=== PATIENT | male | born 1950 | race Caucasian/White ===

== ENCOUNTER → 2018-07-11 | Outpatient (CLI) | payer OTHER, BC ==
--- NOTE | 2018-07-11 11:08 | REP ---
RIGHT WRIST, FOUR VIEWS: HISTORY: Pain. There is no acute fracture or dislocation. There is narrowing of the first carpometacarpal joint space with associated osteophyte formation. IMPRESSION: Degenerative change as described above. Electronically Signed by Maxwell Stanley MD 07/11/2018 11:11 A
--- NOTE | 2018-07-11 11:11 | REP ---
RIGHT HAND, FOUR VIEWS: HISTORY: Pain. There is no acute fracture or dislocation. There is narrowing of the 1st carpometacarpal joint space with associated osteophyte formation. There is narrowing of the 1st, 3rd, and 5th metacarpophalangeal joint spaces. Osteophytes are present at the interphalangeal joint of the 1st digit on the head of the 3rd metacarpal and at the 5th intermediate and 2nd through 5th distal interphalangeal joint spaces. Subchondral cysts are present in the proximal and intermediate phalanges of the 5th digit. IMPRESSION: Degenerative change as described above. Electronically Signed by Maxwell Stanley MD 07/11/2018 11:48 A
== END ==
LOC: M WUC 10:24
PROVIDERS: ATTEND Physician Assistant
DX: M25.531 Pain in right wrist (principal); M25.541 Pain in joints of right hand; M85.641 Other cyst of bone, right hand; M19.041 Primary osteoarthritis, right hand; M19.031 Primary osteoarthritis, right wrist

== ENCOUNTER 2018-11-11 10:23 | Day surgery (SDC) | payer BC, OTHER ==
[~2018-11-11] VITALS: Ht 180.3 cm; Wt 98.9 kg
[~2018-11-11 10:23] MED LIST: MULTTAB86 PO; NON-325T5 PO; NS 1,000 ML IV ONE; PROPOFOL 200 MG/20 ML VIAL As Ordered ONE; ROSU40TA4 PO
--- NOTE | 2018-11-11 12:00 | ROOR ---
Patient Name: Paul Boyer Procedure Date: 11/11/2018 11:37 AM Date of : 1950 Age: 68 Room: [facility] Gender: Male Note Status: Finalized Procedure: Total Colonoscopy to Cecum + Cold + Hot Snare Polypectomy + Hemoclips Indications: Screening for colorectal malignant neoplasm Providers: Charli Whalen MD Referring MD: Ethan Chua MD Requesting Provider: Medicines: Monitored Anesthesia Care Complications: No immediate complications. Procedure: Pre-Anesthesia Assessment: - The heart rate, respiratory rate, oxygen saturations, blood pressure, adequacy of pulmonary ventilation, and response to care were monitored throughout the procedure. The Colonoscope was introduced through the anus and advanced to the cecum, identified by appendiceal orifice and ileocecal valve. The colonoscopy was performed without difficulty. The patient tolerated the procedure well. The quality of the bowel preparation was excellent. Findings: The perianal and digital rectal examinations were normal. Non-bleeding internal hemorrhoids were found during retroflexion. The hemorrhoids were small and Grade I (internal hemorrhoids that do not prolapse). Scattered small-mouthed diverticula were found in the recto-sigmoid colon, sigmoid colon and descending colon. A medium polyp was found in the rectum. The polyp was sessile. The polyp was removed with a hot snare. Resection and retrieval were complete. To prevent bleeding after the polypectomy, one hemostatic clip was successfully placed (MR conditional). There was no bleeding at the end of the procedure. A small polyp was found at 25 cm proximal to the anus. The polyp was sessile. The polyp was removed with a cold snare. Resection and retrieval were complete. A small polyp was found in the transverse colon. The polyp was sessile. The polyp was removed with a cold snare. Resection and retrieval were complete. The exam was otherwise without abnormality on direct and retroflexion views. Impression: - Non-bleeding internal hemorrhoids. - Diverticulosis in the recto-sigmoid colon, in the sigmoid colon and in the descending colon. - One medium polyp in the rectum, removed with a hot snare. Resected and retrieved. Clip (MR conditional) was placed. - One small polyp at 25 cm proximal to the anus, removed with a cold snare. Resected and retrieved. - One small polyp in the transverse colon, removed with a cold snare. Resected and retrieved. - The examination was otherwise normal on direct and retroflexion views. - The exam was otherwise normal to the cecum. Recommendation: - Patient has a contact number available for emergencies. The signs and symptoms of potential delayed complications were discussed with the patient. Return to normal activities tomorrow. Written discharge instructions were provided to the patient. - High fiber diet. - Discharge patient to home. - Continue present medications. - Await pathology results. - Telephone GI clinic for pathology results in 1 week. - Repeat colonoscopy for surveillance based on pathology results. - Return to referring physician. - The findings and recommendations were discussed with the patient's family. Charli Whalen MD Charli Whalen MD 11/11/2018 12:00:13 PM Electronically signed by Charli Whalen MD Number of Addenda: 0 Note Initiated On: 11/11/2018 11:37 AM Estimated Blood Loss: Estimated blood loss: none.
[2018-11-11 12:15] VITALS: BP 174/91
== END 2018-11-11 12:45 | disposition home or self-care (01) ==
LOC: M OPP 10:23
PROVIDERS: ATTEND Internal Medicine Gastroenterology
DX: Z12.11 Encounter for screening for malignant neoplasm of colon (principal); K64.0 First degree hemorrhoids; K62.1 Rectal polyp; D12.3 Benign neoplasm of transverse colon; K57.30 Diverticulosis of large intestine without perforation or abscess without bleeding; Z79.899 Other long term (current) drug therapy; Z87.891 Personal history of nicotine dependence

== ENCOUNTER → 2021-01-13 | Outpatient (CLI) | payer OTHER ==
[~2021-01-13] MED LIST changes: +ACET32TAB PO; -NON-325T5 PO; -NS 1,000 ML IV ONE; -PROPOFOL 200 MG/20 ML VIAL As Ordered ONE; +TRIA37.5 PO
== END ==
LOC: M LABSMTC 09:45
PROVIDERS: ATTEND Anesthesiology
DX: Z01.812 Encounter for preprocedural laboratory examination (principal); Z20.822 Contact with and (suspected) exposure to COVID-19

== ENCOUNTER 2021-01-17 09:25 | Day surgery (SDC) | payer OTHER ==
[~2021-01-17] VITALS: Ht 182.9 cm; Wt 101.1 kg
[~2021-01-17 09:25] MED LIST changes: +NS 1,000 ML IV ONE
--- OUTSIDE RECORDS SUMMARY | 2021-01-17 09:31 | CCD | Continuity of Care Document ---
Author Paul Lucas DPM Organization Unknown Address [address] [place] [address], [facility] [address] [place] [address] Phone [phone] Care Team Providers Care Journeyman Pipe Fitter Name Role Phone Raphael Ibarra MD [phone] Problems Description No Information Available Social History Type Date Description Comments Sex Unknown ETOH Use Rarely consumes alcohol Tobacco Use Start: Unknown Patient has never smoked Allergies and adverse reactions Description No Known Drug Allergies Medications Active Medications SIG Qnty Indications Ordering Provide r Date Rosuvastatin Calcium 40mg Tablets Raphael Ibarra MD Triamterene/Hydrochlorothiazide 37.5-25mg Tablets Raphael Ibarra MD 0 Cholecalciferol Unknown 0 Multivitamin Unknown Diclofenac Sodium 1% Gel Raphael Ibarra MD Immunizations Description No Information Available Vital Signs Date Vital Result Comment 12/21/2020 8:32am Height 72 inches 6'0" Weight 220.00 lb BP Systolic 130 mmHg BP Diastolic 86 mmHg Heart Rate 80 /min BMI (Body Mass Index) 29.8 kg/m2 Results Description No Information Available Procedures Date Code Description Status 12/21/2020 64940 Office/Outpatient New Low [facility] 30 -44 Minutes Completed Medical Devices Description No Information Available Encounters Type Date Location Provider Dx Diagnosis Office Visit 12/21/2020 8:30a [place] [facility] Hipolito Cooper DPM 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
--- OUTSIDE RECORDS SUMMARY | 2021-01-17 09:31 | CCD ---
Continuity of Care Document (CCD) Created on: 12/05/2020 Paul Boyer External Reference #: [id number] : 1950 Sex: Male Author Author Paul WHALEN M.D. Organization Unknown Address [address] [place] [address] Phone [phone] Care Team Providers Care Investigative Analyst Name Role Phone Maxwell Interiano MD AUTM [phone] Problems Active Problems Provider Date Screening for malignant neoplasm of colon Charli villasenor M.D. Onset: 10/15/2018 Social History Type Date Description Comments Sex Unknown ETOH Use Occasionally Tobacco Use Start: Unknown End: Unknown Patient is a former smoker QUIT EARLY Recreational Drug Use Sporadically uses Marijuan a Allergies and adverse reactions Description No Known Drug Allergies Medications Active Medications SIG Qnty Indications Ordering Provide r Date Suprep Bowel Prep Kit 17.5-3.13-1.6GM/177ML Solution use as directed 354ml Charli Whalen M.D. 11/28/2020 Pravastatin Sodium 40mg Tablets Raphael Ibarra MD Immunizations Description No Information Available Vital Signs Date Vital Result Comment 11/28/2020 4:00pm Height 71 inches 5'11" Weight 222.00 lb BP Systolic 136 mmHg BP Diastolic 83 mmHg Heart Rate 54 /min BMI (Body Mass Index) 31.0 kg/m2 Weight 100.699 kg Body Temperature 97.0 F 10/15/2018 9:51am Height 71 inches 5'11" Weight 232.00 lb BP Systolic 132 mmHg BP Diastolic 85 mmHg Heart Rate 61 /min BMI (Body Mass Index) 32.4 kg/m2 Weight 105.235 kg Results Description No Information Available Procedures Date Code Description Status 11/28/2020 59714 Office/Outpatient Established Lo w MDM 20-29 Min Completed Medical Devices Description No Information Available Encounters Type Date Location Provider Dx Diagnosis Office Visit 11/28/2020 3:45p Main Office Charli Whalen M.D. 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 Plan of Treatment Future Appointment(s):* 01/17/2021 1:15 pm - Charli Whalen M.D. at Main Office 11/28/2020 - Charli Whalen M.D.* D12.8 Benign neoplasm of rectum* Comments:* 70 yo wm who presents for a colonoscopy due to a h/o colonic polyps-tubulovillous adenoma-rectum. Last scope was in 2019. No c/o abdominal pain, weight loss, change in bowel habits, or rectal bleeding. No family h/o colon cancer. No h/o chest pain, or sob. Plan:1. Colonoscopy to cecum.2. Informed consent. Functional Status Description No Information Available Mental Status Description No Information Available Referrals Refer to Dr Reason for Referral Status Appt Date Charli Whalen M.D. Created [address] [place] [address] [phone]
--- OUTSIDE RECORDS SUMMARY | 2021-01-17 09:31 | CCD ---
Author Author [facility] Organization [facility] Address Unknown Phone Unavailable Care Team Providers Care Jute Bag Sewer Name Role Phone Nathalia Whalen MD Unavailable Unavailable Nathalia Whalen MD Unavailable Unavailable Nathalia Whalen MD Unavailable Unavailable Nathalia Whalen MD Unavailable Unavailable Nathalia Whalen MD Unavailable Unavailable Nathalia Whalen MD Unavailable Unavailable Nathalia Whalen MD Unavailable Unavailable Nathalia Whalen MD Unavailable Unavailable Nathalia Whalen MD Unavailable Unavailable Nathalia Whalen MD Unavailable Unavailable Nathalia Whalen MD Unavailable Unavailable Nathalia Whalen MD Unavailable Unavailable Nathalia Whalen MD Unavailable Unavailable Nathalia Whalen MD Unavailable Unavailable Nathalia Whalen MD Unavailable Unavailable Nathalia Whalen MD Unavailable Unavailable Nathalia Whalen MD Unavailable Unavailable Nathalia Whalen MD Unavailable Unavailable Nathalia Whalen MD Unavailable Unavailable Nathalia Whalen MD Unavailable Unavailable Nathalia Whalen MD Unavailable Unavailable Nathalia Whalen MD Unavailable Unavailable Nathalia Whalen MD Unavailable Unavailable Nathalia Whalen MD Unavailable Unavailable Nathalia Whalen MD Unavailable Unavailable Nathalia Whalen MD Unavailable Unavailable Nathalia Whalen MD Unavailable Unavailable Nathalia Whalen MD Unavailable Unavailable Nathalia Whalen MD Unavailable Unavailable Nathalia Whalen MD Unavailable Unavailable Koby, S Charli MALHOTRA Unavailable Unavailable Koby, S Charli MD Unavailable Unavailable Koby, S Charli MD Unavailable Unavailable Koby, S Charli MD Unavailable Unavailable Koby, S Charli MD Unavailable Unavailable Koby, S Charli MD Unavailable Unavailable Koby, S Charli MD Unavailable Unavailable Koby, S Charli MD Unavailable Unavailable Koby, S Charli MD Unavailable Unavailable Koby, S Charli MD Unavailable Unavailable Koby, S Charli MD Unavailable Unavailable Koby, S Charli MD Unavailable Unavailable Koby, S Charli MD Unavailable Unavailable Koby, S Charli MD Unavailable Unavailable Koby, S Charli MD Unavailable Unavailable Koby, S Charli MD Unavailable Unavailable Koby, S Charli MD Unavailable Unavailable Koby, S Charli MD Unavailable Unavailable Koby, S Charli MD Unavailable Unavailable Koby, S Charli MD Unavailable Unavailable MAJAK, R GODFREY DPM Unavailable Unavailable MAJAK, R GODFREY DPM Unavailable Unavailable MAJAK, R GODFREY DPM Unavailable Unavailable MAJAK, R GODFREY DPM Unavailable Unavailable MAJAK, R GODFREY DPM Unavailable Unavailable MAJAK, R GODFREY DPM Unavailable Unavailable MAJAK, R GODFREY DPM Unavailable Unavailable MAJAK, R GODFREY DPM Unavailable Unavailable MAJAK, R GODFREY DPM Unavailable Unavailable MAJAK, R GODFREY DPM Unavailable Unavailable MAJAK, R GODFREY DPM Unavailable Unavailable MAJAK, R GODFREY DPM Unavailable Unavailable MAJAK, R GODFREY DPM Unavailable Unavailable MAJAK, R GODFREY DPM Unavailable Unavailable MAJAK, R GODFREY DPM Unavailable Unavailable MAJAK, R GODFREY DPM Unavailable Unavailable MAJAK, R GODFREY DPM Unavailable Unavailable MAJAK, R GODFREY DPM Unavailable Unavailable MAJAK, R GODFREY DPM Unavailable Unavailable MAJAK, R GODFREY DPM Unavailable Unavailable MAJAK, R GODFREY DPM Unavailable Unavailable MAJAK, R GODFREY DPM Unavailable Unavailable MAJAK, R GODFREY DPM Unavailable Unavailable MAJAK, R GODFREY DPM Unavailable Unavailable MAJAK, R GODFREY DPM Unavailable Unavailable MAJAK, R GODFREY DPM Unavailable Unavailable MAJAK, R GODFREY DPM Unavailable Unavailable MAJAK, R GODFREY DPM Unavailable Unavailable MAJAK, R GODFREY DPM Unavailable Unavailable MAJAK, R GODFREY DPM Unavailable Unavailable MAJAK, R GODFREY DPM Unavailable Unavailable Re-disclosure Warning The records that you are about to access may contain information from federally-assisted alcohol or drug abuse programs. If such information is present, then the following federally mandated warning applies: This information has been disclosed to you from records protected by federal confidentiality rules (42 CFR part 2). The federal rules prohibit you from making any further disclosure of this information unless further disclosure is expressly permitted by the written consent of the person to whom it pertains or as otherwise permitted by 42 CFR part 2. A general authorization for the release of medical or other information is NOT sufficient for this purpose. The Federal rules restrict any use of the information to criminally investigate or prosecute any alcohol or drug abuse patient.The records that you are about to access may contain highly sensitive health information, the redisclosure of which is protected by Article 27-F of the [facility] Public Health law. If you continue you may have access to information: Regarding HIV / AIDS; Provided by facilities licensed or operated by the [facility] Office of Mental Health; or Provided by the [facility] Office for People With Developmental Disabilities. If such information is present, then the following [facility] mandated warning applies: This information has been disclosed to you from confidential records which are protected by state law. State law prohibits you from making any further disclosure of this information without the specific written consent of the person to whom it pertains, or as otherwise permitted by law. Any unauthorized further disclosure in violation of state law may result in a fine or fdc sentence or both. A general authorization for the release of medical or other information is NOT sufficient authorization for further disc losure. Family History Family Member Name Family Member Gender Family Member Status Date o f Status Description Data Source(s) Unknown Unknown Problem [facility] ([facility]) Unknown Unknown Problem [facility] ([facility], [facility]) Encounters Encounter Providers Location Date Indications Data Source(s ) Outpatient Attender: GODFREY SEXTON [facility] Office 09/2020 08:30:00 AM EDT [facility] ([facility] Outpatient Attender: Charli Whalen MD Main Office 11/28/2020 03:45:00 PM EDT [facility] ([facility]) Immunizations Vaccine Date Status Description Data Source(s) COVID-19 VACCINE Pfizer 06/13/2020 12:00:00 AM EDT completed [facility] Vaccine Series Complete: YESThis Data wa s Submitted to [facility]. COVID-19 VACCINE Pfizer 05/23/2020 12:00:00 AM EST completed [facility] Vaccine Series Complete: NOThis Data was Submitted to [facility] [employer]. Medications Medication Brand Name Start Date Product Form Dose Route Admi nistrative Instructions Pharmacy Instructions Status Indications Reaction Description Data Source(s) Suprep Bowel Prep Kit Suprep Bowel Prep Kit 11/28/2020 12:00:00 AM EDT active [facility] ([facility]) Insurance Providers Payer name Policy type / Coverage type Policy ID Covered green party ID Covered green party's relationship to josé Policy José Plan Information BCBS OF [facility] [id number] S [id number] [employer] [id number] SP [id number] BC[employer] OF [facility] [id number] S [id number] [facility] [id number] S [id number] [employer]BS [employer] PRO[employer] [id number] SP [id number] WPS/MV/Vapc3/[employer] Commercial [id number] Self [id number] BCBS OF [facility] [id number] S [id number] ANSI-Commercial [id number] ANSI-Commercial [id number] ANSI-Commercial [id number] BCBS [facility] PPO 302/[id number] SP [id number] [facility] FEDERAL [id number] SP [id number] BCBS Federal Plan Commercial [id number] Self [id number] ANSI-Commercial [id number] ANSI-Commercial [id number] ANSI-Commercial [id number] DEPARTMENT OF LABOR-OWCP [id number] S [id number] GENERAL SERVICES ADMINISTRATIO [id number] S [id number] SELF PAY SP UNAVAILABLE UNAVAILA BLE GSA [id number] S [id number] EMPLOYER [id number] S [id number] 'S ADMINISTRATION [id number] SP [id number] [facility] [id number] SP [id number] Problems, Conditions, and Diagnoses No Information Surgeries/Procedures Procedure Description Date Indications Data Source(s) OFFICE OUTPATIENT NEW 30 MINUTES 12/21/2020 12:00:00 A M EDT [facility] ([facility] OFFICE OUTPATIENT VISIT 15 MINUTES 11/28/2020 12:00:00 AM EDT [facility] ([facility]) Results ID Date Data Source [id number] 01/13/2021 09:50:00 AM EDT [facility] Name Value Range Interpretation Code Description Data Taina rce(s) Supporting Document(s) SARS-CoV-2 (COVID-19) RNA [Presence] in Respiratory specimen by CORTNEY with probe detection Not Detected [facility] This lab was ordered by [facility] and reported by [employer] ID Date Data Source [id number] 04/08/2020 12:00:00 AM EST [facility] Name Value Range Interpretation Code Description Data Taina rce(s) Supporting Document(s) SARS-CoV-2 (COVID-19) RNA [Presence] in Respiratory specimen by CORTNEY with probe detection Not detected [facility] This lab was ordered by [employer] and r eported by [employer]. ID Date Data Source [id number] 04/08/2020 12:00:00 AM EST [facility] Name Value Range Interpretation Code Description Data Taina rce(s) Supporting Document(s) SARS-COV 2 PCR NEGATIVE [facility] This lab was ordered by [id number] and reported by [employer]. Procedure Social History No Information Vital Signs ID Date Data Source UNK Name Value Range Interpretation Code Description Data Source(s) Diastolic blood pressure 86 mm[Hg] 86 mm[Hg] [facility] ([facility] Heart rate 80 /min 80 /min [facility] ([facility] Body mass index (BMI) [Ratio] 29.8 kg/m2 29.8 k g/m2 [facility] ([facility] Body height 72 [in_i] 72 [in_i] [facility] ([facility] 6'0" Body weight 220.00 [lb_av] 220.00 [lb_av] MEDEN T ([facility] Systolic blood pressure 130 mm[Hg] 130 mm[Hg] M EDENT ([facility] Body height 71 [in_i] 71 [in_i] [facility] ([facility]) 5'11" Body weight 222.00 [lb_av] 222.00 [lb_av] MEDEN T ([facility]) Systolic blood pressure 136 mm[Hg] 136 mm[Hg] M EDENT ([facility]) Diastolic blood pressure 83 mm[Hg] 83 mm[Hg] [facility] ([facility]) Heart rate 54 /min 54 /min [facility] ([facility]) Body mass index (BMI) [Ratio] 31.0 kg/m2 31.0 k g/m2 [facility] ([facility]) Body weight 100.699 kg 100.699 kg [facility] ([facility] Body temperature 97.0 [degF] 97.0 [degF] [facility] ([facility])
[2021-01-17] MEDS ORDERED: LIDOCAINE 2% 100MG/5ML SDV (FOR ANES.) As Ordered ONE (09:32)
[2021-01-17] MEDS ORDERED: propofoL 200 MG/20 ML VIAL As Ordered ONE (09:36)
--- NOTE | 2021-01-17 10:30 | ROOR ---
Patient Name: Paul Boyer Procedure Date: 01/17/2021 10:07 AM Date of : 1950 Age: 70 Room: [facility] Gender: Male Note Status: Finalized Procedure: Total Colonoscopy to Cecum + Biopsy Polypectomy Indications: High risk colon cancer surveillance: Personal history of colonic polyps, Last colonoscopy: 2018 Providers: Charli Whalen MD Referring [facility]: [facility] Raphael Ibarra MD Requesting Provider: Medicines: Monitored Anesthesia Care Complications: No immediate complications. Procedure: Pre-Anesthesia Assessment: - The heart rate, respiratory rate, oxygen saturations, blood pressure, adequacy of pulmonary ventilation, and response to care were monitored throughout the procedure. The Colonoscope was introduced through the anus and advanced to the cecum, identified by appendiceal orifice and ileocecal valve. The colonoscopy was performed without difficulty. The patient tolerated the procedure well. The quality of the bowel preparation was excellent. Findings: The perianal and digital rectal examinations were normal. Non-bleeding internal hemorrhoids were found during retroflexion. The hemorrhoids were small and Grade I (internal hemorrhoids that do not prolapse). Multiple small and large-mouthed diverticula were found in the recto-sigmoid colon, sigmoid colon and descending colon. A diminutive polyp was found in the transverse colon. The polyp was sessile. The polyp was removed with a jumbo cold forceps. Resection and retrieval were complete. The exam was otherwise without abnormality on direct and retroflexion views. Impression: - Non-bleeding internal hemorrhoids. - Diverticulosis in the recto-sigmoid colon, in the sigmoid colon and in the descending colon. - One diminutive polyp in the transverse colon, removed with a jumbo cold forceps. Resected and retrieved. - The examination was otherwise normal on direct and retroflexion views. - The exam was otherwise normal to the cecum. Recommendation: - Patient has a contact number available for emergencies. The signs and symptoms of potential delayed complications were discussed with the patient. Return to normal activities tomorrow. Written discharge instructions were provided to the patient. - High fiber diet. - Discharge patient to home. - Continue present medications. - Await pathology results. - Telephone GI clinic for pathology results in 1 week. - Repeat colonoscopy in 5 years for surveillance. - Return to referring physician. - The findings and recommendations were discussed with the patient. Procedure Code(s): --- Professional --- 56070, Colonoscopy, flexible; with biopsy, single or multiple Diagnosis Code(s): --- Professional --- Z86.010, Personal history of colonic polyps K64.0, First degree hemorrhoids K63.5, Polyp of colon K57.30, Diverticulosis of large intestine without perforation or abscess without bleeding CPT copyright 2019 [employer]. All rights reserved. The codes documented in this report are preliminary and upon ware dresser review may be revised to meet current compliance requirements. Charli Whalen MD Charli Whalen MD 01/17/2021 10:30:22 AM Electronically signed by Charli Whalen MD Number of Addenda: 0 Note Initiated On: 01/17/2021 10:07 AM Estimated Blood Loss: Estimated blood loss: none.
[2021-01-17 10:45] VITALS: BP 136/70
== END 2021-01-17 10:53 | disposition home or self-care (01) ==
LOC: M OPP 09:25
PROVIDERS: ATTEND Internal Medicine Gastroenterology
DX: Z12.11 Encounter for screening for malignant neoplasm of colon (principal); Z86.010 Personal history of colon polyps; D12.3 Benign neoplasm of transverse colon; K57.30 Diverticulosis of large intestine without perforation or abscess without bleeding; K64.0 First degree hemorrhoids; Z79.899 Other long term (current) drug therapy; Z87.891 Personal history of nicotine dependence

== ENCOUNTER → 2023-09-01 | Outpatient (CLI) | payer MEDICARE, BC ==
[~2023-09-01] MED LIST changes: -NS 1,000 ML IV ONE; -ROSU40TA4 PO; +ROSU40TA63 PO
== END ==
LOC: M WUC 09:09
PROVIDERS: ATTEND Student in an Organized Health Care Education/Training Program
DX: M25.561 Pain in right knee (principal); M25.562 Pain in left knee

== ENCOUNTER → 2024-07-30 | Outpatient (CLI) | payer MEDICARE, BC ==
[~2024-07-30] MED LIST changes: -ROSU40TA63 PO; +ROSU40TA81 PO
== END ==
LOC: M SOG 06:52
PROVIDERS: ATTEND Orthopaedic Surgery
DX: M17.0 Bilateral primary osteoarthritis of knee (principal)

== ENCOUNTER → 2024-12-09 | Outpatient (REF) | payer MEDICARE, BC | LOC: M SFHCDERM 17:36 | PROVIDERS: ATTEND Dermatology | DX: D48.9 Neoplasm of uncertain behavior, unspecified (principal) ==